=== PATIENT | female | born 1935 | race Caucasian/White ===

== ENCOUNTER 2016-11-14 09:38 | Outpatient (CLI) | payer BC ==
[~2016-11-14 09:38] MED LIST: LOSA100T15 PO; MONT10TA22 PO; OMEP20CA10 PO
== END 2016-11-14 23:59 | disposition home or self-care (01) ==
LOC: RAD 09:38
PROVIDERS: ATTEND Family Medicine
DX: J45.901 Unspecified asthma with (acute) exacerbation (principal); R06.02 Shortness of breath
CPT/HCPCS: 71020-TC